=== PATIENT | male | born 1970 | race Caucasian/White ===

== ENCOUNTER → 2023-07-25 | Outpatient (CLI) | payer OTHER ==
--- NOTE | 2023-07-26 06:42 | CA ---
Transthoracic Echo Report Name: Satya Osuna Age: 52 Gender: M : 1970 Exam Date: 07/25/2023 13:53 Exam Location: [place] [facility] Ht (in): 71 Wt (lb): 185 Ordering Physician: Augustus Joshua MD Attending/Referring Phys: [id number] Kristine Alonzo [facility] Procedure CPT: Indications: R55 Syncope Cardiac Hx: Technical Quality: Fair Contrast 1: Total Dose (mL): Contrast 2: Total Dose (mL): MEASUREMENTS (Male / Female) Normal Values 2D ECHO LV Diastolic Diameter PLAX 4.6 cm 4.2 - 5.9 / 3.9 - 5.3 cm LV Systolic Diameter PLAX 3.5 cm IVS Diastolic Thickness 1.1 cm 0.6 - 1.0 / 0.6 - 0.9 cm LVPW Diastolic Thickness 1.1 cm 0.6 - 1.0 / 0.6 - 0.9 cm LV Relative Wall Thickness 0.5 LVOT Diameter 2.1 cm LA Volume 32.9 cm??? 18 - 58 / 22 - 52 cm??? LA Volume Index 16.0 cm???/m??? 16 - 28 cm???/m??? Ascending Aorta Diameter 2.9 cm M-MODE Aortic Root Diameter MM 2.9 cm LA Systolic Diameter MM 3.7 cm LA Ao Ratio MM 1.3 AV Cusp Separation MM 2.1 cm DOPPLER AV Peak Velocity 97.2 cm/s AV Peak Gradient 3.8 mmHg AV Mean Velocity 70.9 cm/s AV Mean Gradient 2.2 mmHg AV Velocity Time Integral 19.3 cm LVOT Peak Velocity 82.4 cm/s LVOT Peak Gradient 2.7 mmHg LVOT Velocity Time Integral 17.6 cm LVOT Stroke Volume 63.7 cm??? LVOT Stroke Volume Index 31.2 ml/m??? LVOT Cardiac Index 2287.1 cm???/min???m??? AV Area Cont Eq vti 3.3 cm??? AV Area Cont Eq pk 3.1 cm??? MV Area PHT 3.9 cm??? Mitral E Point Velocity 58.7 cm/s Mitral A Point Velocity 78.8 cm/s Mitral E to A Ratio 0.7 MV Deceleration Time 192.4 ms LV E' Lateral Velocity 7.7 cm/s Mitral E to LV E' Lateral Ratio 7.6 LV E' Septal Velocity 6.0 cm/s Mitral E to LV E' Septal Ratio 9.8 Right Atrial Pressure 3.0 mmHg FINDINGS Left Ventricle Mildly increased left ventricular wall thickness. Left ventricular cavity size normal. Low normal left ventricular systolic function with no obvious regional wall motion abnormalities. Left ventricular ejection fraction is estimated at 50-55%. Right Ventricle Normal right ventricular size. Unable to estimate the right ventricular systolic pressure. Right Atrium Normal right atrial size. Left Atrium Normal left atrial size. Mitral Valve Structurally normal mitral valve. No mitral regurgitation. Aortic Valve Trileaflet aortic valve. No aortic valve stenosis or regurgitation. Tricuspid Valve Structurally normal tricuspid valve. No tricuspid regurgitation. Pulmonic Valve Structurally normal pulmonic valve. No pulmonic regurgitation. Pericardium Minimal pericardial effusion (normal variant). Aorta Normal size aortic root and proximal ascending aorta. CONCLUSIONS Normal LV size and function Prominent posterior pericardial stripe at the base of the LV and posterior to the left atrium, no effusion Previewed by: Dr. Abram Monae MD (Electronically Signed) Final Date: 26 July 2023 06:41
== END | disposition home or self-care (01) ==
LOC: RADECHMAIN 13:41
PROVIDERS: ATTEND Family Medicine
DX: R55 Syncope and collapse (principal)
CPT/HCPCS: 93306